=== PATIENT | male | born 1970 | race Caucasian/White ===

== ENCOUNTER 2019-08-20 09:49 | Emergency (ER) | payer BC, OTHER ==
[~2019-08-20] VITALS: Ht 185.4 cm; Wt 83.9 kg
--- OUTSIDE RECORDS SUMMARY | ~2019-08-20 | XMS | Clinical Summary ---
Demographics + + + | Address | [address] | | | [place] [address] | + + + | Home Phone | | + + + | Preferred Language | Unknown | + + + | Marital Status | Single | + + + | Jehovah'S Witness Affiliation | Unknown | + + + | Race | Unknown | + + + | Ethnic Group | Unknown | + + + Author + + + | Author | [facility] | | | and [place] | + + + | Organization | [facility] | | | and [place] | + + + | Address | Unknown | + + + | Phone | Unavailable | + + + Support + + +---------+ + | Name | Relationship | Address | Phone | + + +---------+ + | Mariajose Frederick | ECON | Unknown | | + + +---------+ + Care Team Providers + +------+ + | Care Metal Treater Name | Role | Phone | + +------+ + | Zenia Ervin | PCP | | + +------+ + Allergies Not on File Medications Not on file Active Problems Not on file Social History + +-------+ +--------+------+ | Tobacco Use | Types | Packs/Day | Years | Date | | | | | Used | | + +-------+ +--------+------+ | Never Assessed | | | | | + +-------+ +--------+------+ + + + | Sex Assigned at | Date Recorded | | | | + + + | Not on file | | + + + + + + + | Job Start Date | Occupation | Industry | + + + + | Not on file | Not on file | Not on file | + + + + + + + + | Travel History | Travel Start | Travel End | + + + + + + | No recent travel history available. | + + Last Filed Vital Signs Not on file Plan of Treatment +--------+---------+ + + + | Date | Type | Specialty | Care Team | Description | +--------+---------+ + + + | 09/11/ | Office | Cardiology | Mariela Thomson, | | | 2019 | Visit | | [address] | | | | | | [place], [place] | | | | | | [address] | | | | | | | | +--------+---------+ + + + + + + + + | Health Maintenance | Due Date | Last Done | Comments | + + + + + | Vaccine: | | | | | Dtap/Tdap/Td (1 - | 1 | | | | Tdap) | | | | + + + + + | Vaccine: Influenza | | | | | (#1) | 9 | | | + + + + + Results Not on filefrom Last 3 Months Insurance +-------+--------+ +--------+-------+---------+------+ | Payer | Benefi | Subscriber | Effect | Phone | Address | Type | | | t Plan | ID | denis | | | | | | / | | Dates | | | | | | Group | | | | | | +-------+--------+ +--------+-------+---------+------+ | BCBS | BCBS | [id number] | 08/21/19 | | | PPO | | | FEDERA | | 16-Pre | | | | | | L FEP | | sent | | | | +-------+--------+ +--------+-------+---------+------+ + +--------+ +--------+ + + | Guarantor Name | Accoun | Relation to | Date | Phone | Billing Address | | | t Type | Patient | of | | | | | | | | | | + +--------+ +--------+ + + | Rubens Frederick | Person | Self | [birth year] | [address] | | | [place] | | 1970 | [phone] | [place], | | | [place] | | | [address] (Home) | [place] [address] | | | | | | [phone] | | | | | | | 4 (Work) | | + +--------+ +--------+ + + Advance Directives + + + + + | Type | Date Recorded | Patient | Explanation | | | | Facility Maintenance Worker | | + + + + + | Power of | | | | | Element Burner | | | | + + + + + | Advance | | | | | Directive | | | | + + + + +"
--- OUTSIDE RECORDS SUMMARY | ~2019-08-20 | XMS | Clinical Summary ---
Demographics + + + | Address | [address] | | | [place] [address] | + + + | Home Phone | | + + + | Preferred Language | Unknown | + + + | Marital Status | Single | + + + | Yazidism Affiliation | Unknown | + + + | Race | Unknown | + + + | Ethnic Group | Unknown | + + + Author + + + | Author | [facility] | | | and [place] | + + + | Organization | [facility] | | | and [...] Team Providers + +------+ + | Care Strap Machine Operator Name | Role | Phone | + +------+ + | eZnia Ervin | PCP | | + +------+ [...] | | | | | [place], [place] | | | | | | [address] | | | | | | | [...] +-------+--------+ +--------+-------+---------+------+ | BCBS | BCBS | [id number] | 08/21/19 | | | PPO | [...] Person | Self | [birth year] | [address] | | | [place] | | 1970 | [phone] | [place], | | | [place] | | | [address] (Home) | [place] [address] | | | | | | [phone] | | | | | | | 4 (Work) | | + +--------+ +--------+ + + Advance Directives + + + + + | Type | Date Recorded | Patient | Explanation | | | | Financial Reporting Accountant | | + + + + + | Power of | | | | | [employer] Administrator | | | | + + + + + | Advance | | | | | Directive | | | | + + + + +"
[2019-08-20] MEDS ORDERED: VITAMIN C500 M4 PO (10:13)
[2019-08-20] MEDS ORDERED: ONE-DAILY MULT1 EAC1 PO (10:13)
--- NOTE | 2019-08-21 06:23 | EKG ---
[facility] [address] [facility] [place] [address] Signed Sinus bradycardia Left axis deviation Left ventricular hypertrophy with QRS widening Cannot rule out Anteroseptal infarct , age undetermined Abnormal ECG No previous ECGs available Confirmed by GABY JUAN MD ([id number]) on 08/21/2019 6:23:03 AM Electronically Signed By: GABY JUAN MD 08/21/19 0623 PATIENT NAME: ANISHA BECKFORDELBA GLASER Electrocardiogram DATE OF : 70 PHYSICIAN: GABY JUAN MD REPORT #: [id number] REPORT IS CONFIDENTIAL AND NOT TO BE RELEASED WITHOUT AUTHORIZATION
== END 2019-08-20 12:35 | disposition home or self-care (01) ==
LOC: ED 09:49
DX: R55 Syncope and collapse (principal); R42 Dizziness and giddiness; Z79.899 Other long term (current) drug therapy
CPT/HCPCS: 71045; 80053; 83735; 83880; 84443; 84484; 85025; 93005; 93010; 96360; 99284-25; J7030